=== PATIENT | female | born 1935 | race Caucasian/White ===

== ENCOUNTER → 2017-07-04 | Outpatient (CLI) | payer OTHER ==
[~2017-07-04] MED LIST: AMBIEN 5 MG TABL5 M1 PO; AMITRIPTYLINE H25 M2 GT; ARAVA10 MG PO; CLONAZEPAM PO; HYDROCODONE-AP1 EA11 PO; HYDROXYCHLOROQ200 M1 PO; KEFLEX500 MG PO; KLOR-CON 1010 MEQ PO; LEVAQUIN 500 M500 M2 PO; MAG-OX 400 TAB400 M1 PO; NEURONTIN 300300 M1 PO; OS-CAL 500+D C1 EACH PO; OXYCONTIN PO; VITAMIN D1000 UNI1 PO
== END ==
LOC: HYPER 07:11
DX: L03.115 Cellulitis of right lower limb (principal); H26.9 Unspecified cataract; M19.90 Unspecified osteoarthritis, unspecified site; M06.9 Rheumatoid arthritis, unspecified; Z96.619 Presence of unspecified artificial shoulder joint; Z96.659 Presence of unspecified artificial knee joint

== ENCOUNTER → 2017-08-21 | Outpatient (CLI) | payer OTHER ==
[2017-08-21 10:56] LABS: CREATININE 1.7 mg/dL (0.6-1.0)
== END ==
LOC: CAT 10:06
PROVIDERS: Family Medicine
DX: R91.8 Other nonspecific abnormal finding of lung field (principal)

== ENCOUNTER 2018-08-26 12:30 | Emergency (ER) | payer OTHER ==
[~2018-08-26] VITALS: Ht 162.6 cm; Wt 55.3 kg
[2018-08-26 12:33] VITALS: BP 124/69
[2018-08-26] MEDS ORDERED: ASPIR 8181 MG PO (12:43)
[2018-08-26] MEDS ORDERED: LASIX 20 MG TAB20 MG PO (12:44)
[2018-08-26] MEDS ORDERED: LISINOPRIL2.5 MG PO (12:44)
[2018-08-26] MEDS ORDERED: PROTONIX40 M1 PO (12:45)
[2018-08-26] MEDS ORDERED: SPIRONOLACTONE25 M1 PO (12:45)
[2018-08-26] MEDS ORDERED: VALTREX1000 MG PO (12:46)
[2018-08-26] MEDS ORDERED: NEURONTIN100 MG PO (12:56)
== END 2018-08-26 13:18 | disposition home or self-care (01) ==
LOC: ER 12:30
DX: B02.29 Other postherpetic nervous system involvement (principal); M19.90 Unspecified osteoarthritis, unspecified site; K21.9 Gastro-esophageal reflux disease without esophagitis; F32.9 Major depressive disorder, single episode, unspecified; Z96.652 Presence of left artificial knee joint; Z96.651 Presence of right artificial knee joint

== ENCOUNTER 2018-12-24 10:09 | Emergency (ER) | payer OTHER ==
[~2018-12-24] VITALS: Ht 162.6 cm; Wt 60.3 kg
[~2018-12-24 10:09] MED LIST changes: +ASPIR 8181 MG PO; +LASIX 20 MG TAB20 MG PO; +LISINOPRIL2.5 MG PO; +NEURONTIN100 MG PO; +PROTONIX40 M1 PO; +SPIRONOLACTONE25 M1 PO; +VALTREX1000 MG PO
[2018-12-24 11:03] LABS: HEMATOCRIT 26.5 % (37.0-47.0); HEMOGLOBIN 8.6 gm/dL (12.0-15.0); MCH 31.3 pg (26.0-34.0); MCHC 32.6 g/dL (28.0-37.0); PLATELET COUNT 146 thou/uL (150-400); RBC 2.76 mil/uL (4.20-5.00); RDW 16.5 % (10.5-14.5); WBC 6.9 thou/uL (4.0-11.0)
[2018-12-24 11:15] LABS: APTT 23.8 Seconds (24.5-32.8); PROTIME 10.3 Seconds (9.3-11.4)
[2018-12-24 11:16] LABS: CALCIUM 9.2 mg/dL (8.5-10.1); CREATININE 1.4 mg/dL (0.6-1.0); POTASSIUM 5.5 mmol/L (3.5-5.1)
[2018-12-24 11:26] LABS: ALBUMIN 3.4 g/dL (3.4-5.0); MAGNESIUM 2.3 mg/dL (1.8-2.4); TOTAL BILIRUBIN 0.3 mg/dL (<0.1-1.0); TOTAL PROTEIN 6.2 g/dL (6.4-8.2); TROPONIN-I 0.06 ng/mL (<0.06)
[2018-12-24] MEDS ORDERED: VENTOLIN HFA 1818 GM INH (11:38)
[2018-12-24 11:48] VITALS: BP 133/76
[2018-12-24 13:02] LABS: ABSOLUTE NEUTROPHILS 5.4 thou/uL (1.4-8.2)
[2018-12-24 13:03] LABS: ANISOCYTOSIS 1+
--- NOTE | 2018-12-24 17:13 | EKG ---
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 : 1935 Requested By: Roberto Meneses Order Number: [id number] MD: Greyson Talbert Measurements Intervals [place] Rate: 90 P: 39 DE: 204 QRS: -5 QRSD: 100 T: 35 QT: 383 QTc: 469 Interpretive Statements Sinus rhythm Left atrial enlargement Nonspecific ST and T wave abnormality Compared to ECG 03/07/2017 16:58:58 Atrial abnormality now present T-wave abnormality now present Electronically Signed On 12-24-2018 17:13:20 CDT by Greyson Talbert [email or web address] ��������������������������������������������� <ELECTRONICALLY SIGNED> ���������������������������������������� By: Greyson Talbert MD, [facility] ��������������������������������������������� 12/24/18 1713 1018 [id number] Greyson Talbert MD, [facility] /EPI
== END 2018-12-24 11:49 | disposition home or self-care (01) ==
LOC: ER 10:09
PROVIDERS: Emergency Medicine
DX: N18.9 Chronic kidney disease, unspecified (principal); D64.9 Anemia, unspecified; R06.00 Dyspnea, unspecified; E87.5 Hyperkalemia; E86.9 Volume depletion, unspecified; M06.9 Rheumatoid arthritis, unspecified; G89.29 Other chronic pain; K21.9 Gastro-esophageal reflux disease without esophagitis; F32.9 Major depressive disorder, single episode, unspecified; G62.9 Polyneuropathy, unspecified

== ENCOUNTER 2018-12-26 08:05 | Emergency (ER) | payer OTHER ==
[~2018-12-26] VITALS: Ht 162.6 cm; Wt 59.9 kg
[~2018-12-26 08:05] MED LIST changes: +VENTOLIN HFA 1818 GM INH
[2018-12-26 08:58] LABS: ANION GAP 12 mmol/L (7-16); BUN 65 mg/dL (7-18); CALCIUM 9.1 mg/dL (8.5-10.1); CHLORIDE 105 mmol/L (98-107); CO2 26 mmol/L (21-32); CREATININE 1.5 mg/dL (0.6-1.0); GLUCOSE 115 mg/dL (74-106); POTASSIUM 4.9 mmol/L (3.5-5.1); SODIUM 143 mmol/L (136-145)
[2018-12-26 09:06] LABS: TROPONIN-I <0.06 ng/mL (<0.06)
[2018-12-26 10:18] LABS: MCHC 32.9 g/dL (28.0-37.0)
[2018-12-26 10:20] LABS: HEMATOCRIT 28.7 % (37.0-47.0); HEMOGLOBIN 9.4 gm/dL (12.0-15.0); MCH 31.4 pg (26.0-34.0); MCV 95.5 fL (80.0-100.0); RDW 16.1 % (10.5-14.5); WBC 7.1 thou/uL (4.0-11.0)
[2018-12-26 11:12] LABS: ABSOLUTE NEUTROPHILS 5.4 thou/uL (1.4-8.2); ANISOCYTOSIS 2+; PLATELET COUNT 139 thou/uL (150-400); PLATELET ESTIMATE NORMAL
[2018-12-26] MEDS ORDERED: LASIX 20 MG TAB20 MG PO (12:17)
[2018-12-26] MEDS ORDERED: ADVAIR HFA 230M12 GM INH (12:24)
[2018-12-26 13:39] VITALS: BP 139/65
--- NOTE | 2018-12-26 17:16 | EKG ---
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 : 1935 Requested By: Pilo Hunt Order Number: [id number] MD: Estuardo Richards Measurements Intervals [place] Rate: 84 P: 26 GA: 196 QRS: -4 QRSD: 98 T: 32 QT: 407 QTc: 482 Interpretive Statements Sinus rhythm Probable left atrial enlargement Left ventricular hypertrophy Compared to ECG 12/24/2018 10:18:10 Left ventricular hypertrophy now present ST (T wave) deviation no longer present Electronically Signed On 12-26-2018 17:16:15 CDT by Estuardo Richards [email or web address] ��������������������������������������������� <ELECTRONICALLY SIGNED> ���������������������������������������� By: Estuardo Richards MD ��������������������������������������������� 12/26/18 1716 3 3 Estuardo Richards MD /TORST[facility]
== END 2018-12-26 13:40 | disposition home or self-care (01) ==
LOC: ER 08:05
PROVIDERS: Emergency Medicine
DX: I50.9 Heart failure, unspecified (principal); R06.2 Wheezing; R60.0 Localized edema; M06.9 Rheumatoid arthritis, unspecified; G89.29 Other chronic pain; M54.9 Dorsalgia, unspecified; J44.9 Chronic obstructive pulmonary disease, unspecified; K21.9 Gastro-esophageal reflux disease without esophagitis; G62.9 Polyneuropathy, unspecified; F32.9 Major depressive disorder, single episode, unspecified; Z86.2 Personal history of diseases of the blood and blood-forming organs and certain disorders involving the immune mechanism

== ENCOUNTER 2019-01-04 16:03 | Inpatient (IN) | payer OTHER ==
[~2019-01-04] VITALS: Ht 165.1 cm; Wt 59.4 kg
[~2019-01-04 16:03] MED LIST changes: +ADVAIR HFA 230M12 GM INH
[2019-01-04 16:04] VITALS: BP 129/68
[2019-01-04 16:45] LABS: HEMOGLOBIN 9.5 gm/dL (12.0-15.0); MCH 31.3 pg (26.0-34.0); MCHC 32.9 g/dL (28.0-37.0); MCV 95.1 fL (80.0-100.0); PLATELET COUNT 155 thou/uL (150-400); RBC 3.05 mil/uL (4.20-5.00); RDW 16.2 % (10.5-14.5); WBC 5.9 thou/uL (4.0-11.0)
[2019-01-04 17:05] LABS: CALCIUM 9.3 mg/dL (8.5-10.1); CREATININE 1.5 mg/dL (0.6-1.0); POTASSIUM 4.6 mmol/L (3.5-5.1)
[2019-01-04 17:14] LABS: TROPONIN-I 0.08 ng/mL (<0.06)
[2019-01-04 17:33] LABS: ABSOLUTE NEUTROPHILS 4.3 thou/uL (1.4-8.2); ANISOCYTOSIS 2+; POLYCHROMASIA OCCASIONAL
[2019-01-04 18:30] VITALS: BP 134/71
[2019-01-04 18:50] VITALS: BP 119/63
[2019-01-04 20:08] VITALS: BP 123/61
--- NOTE | 2019-01-05 02:09 | NUR ---
PATIENT ARRIVED SHORTLY AFTER SHIFT CHANGE FROM ED. HAD RECEIVED LASIX IN ED, CALLED DR. DE ANDA FOR AN ORDER FOR RADHA FOR I & 0. ADMITTED INTO COMPUTER. SETTLED INTO ROOM. PUT IN CALL TO DR DE ANDA TO START HOME MEDS. WAITING ON RESPONSE.
[2019-01-05 03:16] VITALS: BP 129/81
[2019-01-05 08:37] VITALS: BP 136/62
[2019-01-05 10:39] LABS: HEMATOCRIT 31.1 % (37.0-47.0); HEMOGLOBIN 10.2 gm/dL (12.0-15.0); MCH 31.2 pg (26.0-34.0); MCHC 32.9 g/dL (28.0-37.0); MCV 94.8 fL (80.0-100.0); RBC 3.28 mil/uL (4.20-5.00); RDW 15.9 % (10.5-14.5); WBC 6.6 thou/uL (4.0-11.0)
[2019-01-05 10:56] LABS: CREATININE 1.4 mg/dL (0.6-1.0)
[2019-01-05 12:39] VITALS: BP 120/54
[2019-01-05 16:01] VITALS: BP 120/54
--- NOTE | 2019-01-05 16:54 | NUR ---
PATIENT DISCHARGED THIS TIME HOME. SHE HAS INSISTED ON GOING HOME STATING SHE FEELS BETTER. SHE IS CLEARLY STILL HAVING SHORTNESS OF BREATH AND SOMTIMES NOTED TO HAVE LABORED BREATHING. THESE DID NOT BOTHER HER SHE STATED SHE GETS BETTER CARE AT HOME THAN AT THE HOSPITAL. SHE WAS TAKEN ON W/C TO ER ENTRANCE WHERE DAUGHTER WAS WAITING FOR HER. ASSISTED INTO CAR.
--- NOTE | 2019-01-06 08:41 | EKG ---
[place] [address] [address] [place] [address] ELECTROCARDIOGRAM REPORT Name: JOSELIN GARCIA Room #: [facility] M.R.#: [id number] ������������������ Admission: 01/04/19 ������������������ Attend Phys: Leonardo Bowman MD Discharge: 01/05/19 ������������������ Date of : 35 Report #: [id number] ����������������������������������������������������������������� [id number] THIS REPORT FOR: //name// 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 : 1935 Requested By: Scarlet Gonzalez Order Number: [id number] MD: Greyson Talbert Measurements Intervals [place] Rate: 81 P: 39 SD: 200 QRS: -5 QRSD: 104 T: 56 QT: 411 QTc: 477 Interpretive Statements Sinus rhythm Right ventricular conduction delay Nonspecific ST and T wave abnormality Baseline wander in lead(s) V4 Compared to ECG 12/26/2018 08:24:03 No significant changes Electronically Signed On 01-06-2019 8:40:57 CDT by Greyson Talbert [email or web address] ��������������������������������������������� <ELECTRONICALLY SIGNED> ���������������������������������������� By: Greyson Talbert MD, [facility] ��������������������������������������������� 01/06/19 0840 1610 1610 Greyson Talbert MD, [facility] /EPI
== END 2019-01-05 16:54 | disposition home or self-care (01) | DRG 293 ==
LOC: ER 16:03 → EROBS 18:21 → 2N 19:02
PROVIDERS: Emergency Medicine; ADMIT Family Medicine
DX: I50.23 Acute on chronic systolic (congestive) heart failure (principal); K21.9 Gastro-esophageal reflux disease without esophagitis; F32.9 Major depressive disorder, single episode, unspecified; G62.9 Polyneuropathy, unspecified; M06.9 Rheumatoid arthritis, unspecified; Z96.612 Presence of left artificial shoulder joint; F41.9 Anxiety disorder, unspecified; J44.9 Chronic obstructive pulmonary disease, unspecified; N19 Unspecified kidney failure; Z79.899 Other long term (current) drug therapy; Z79.51 Long term (current) use of inhaled steroids
CPT/HCPCS: 10797